=== PATIENT | female | born 1940 | race Hispanic/Latino ===

== ENCOUNTER 2016-09-29 16:02 | Emergency (ER) | payer MEDICARE, OTHER ==
[2016-09-29 16:07] VITALS: BP 116/75; PULSE 84; RESP 18; TEMP 98.2; O2SAT 97
--- NOTE | 2016-09-29 16:28 | ED PDOC ---
HPI: Trauma/Fall - HPI Time Seen by Provider: 09/29/16 16:09 Chief Complaint (Nursing): Trauma History Per: Patient History/Exam Limitations: no limitations Onset/Duration Of Symptoms: Mins Location Of Injury: Anterior: Head Severity: None Pain Scale Rating Of: 0 Associated Symptoms: denies: Dizziness, Dazed, LOC, Seizure, Memory Impairment Additional History Per: Patient Additional Complaint(s): s/p fall, she was [place] [employer], tripped and hit her head against metal she believes. No LOC, vomiting, AMS, dizziness, weakness, numbness, tingling. Tetanus updated within the past 10 years. Denies any other head trauma. Past Medical History Reviewed: Historical Data, Nursing Documentation, Vital Signs Vital Signs: Last Vital Signs Temp 98.2 F 09/29/16 16:05 Pulse 84 09/29/16 16:05 Resp 18 09/29/16 16:05 BP 116/75 09/29/16 16:05 Pulse Ox 97 09/29/16 16:05 - Medical History PMH: Arthritis, Osteoporosis Denies: Chronic Kidney Disease - Family History Family History: States: Unknown Family Hx - Immunization History Hx Tetanus Toxoid Vaccination: Yes (<10 years) - Allergies Allergies/Adverse Reactions: Allergies Allergy/AdvReac Type Severity Reaction Status Date / Time acetaminophen [From Vicodin] Allergy REDNESS Verified 11/30/15 19:10 hydrocodone bitartrate Allergy REDNESS Verified 11/30/15 19:10 [From Vicodin] latex Allergy RASH Verified 11/30/15 19:10 Review of Systems ROS Statement: Except As Marked, All Systems Reviewed And Found Negative Skin: Positive for: Other (Laceration) Physical Exam - Reviewed Nursing Documentation Reviewed: Yes Vital Signs Reviewed: Yes - Physical Exam Appears: Positive for: Well, Non-toxic, No Acute Distress Head Exam: Positive for: NORMOCEPHALIC. Negative for: NORMAL INSPECTION (3cm superficial linear laceration) Skin: Positive for: Normal Color, Warm, DRY Eye Exam: Positive for: EOMI, Normal appearance, PERRL ENT: Positive for: Normal ENT Inspection Neck: Positive for: Normal, Painless ROM Cardiovascular/Chest: Positive for: Regular Rate, Rhythm Respiratory: Positive for: Normal Breath Sounds Gastrointestinal/Abdominal: Positive for: Normal Exam, Bowel Sounds, Soft, Tenderness Pelvic Exam: Positive for: External Exam Normal Back: Positive for: Normal Inspection Extremity: Positive for: Normal ROM Neurologic/Psych: Positive for: Alert, chip person II-XII, Oriented. Negative for: Motor/Sensory Deficits, Mood/Affect, Cerebellar Tests, Gait, Aphasia, Facial Droop - ECG O2 Sat by Pulse Oximetry: 97 Pulse Ox Interpretation: Normal Medical Decision Making Medical Decision Making: elderly head trauma- wound glued with dermabond successfully. will do head CT, if neg will d/c. pt. informed of return precautions. 6PM: Head CT neg. Discussed results with patient. Re-instructed on return precuations. Disposition - Clinical Impression Clinical Impression: Head injury, Laceration - Disposition Referrals: Carlo Rowley MD [Staff Provider] - Disposition Time: 18:00 Condition: STABLE Instructions: Head Injury (ED), Skin Adhesive Care (ED) Laceration - Laceration Repair No standard instances Wound Length (In cm): 36 in Description Of Wound: Linear Wound Examination: Irrigated With Saline Wound Closure: Skin Glue Wound Complexity: Simple
--- NOTE | 2016-09-29 18:02 | CT ---
PROCEDURE: CT HEAD WITHOUT CONTRAST. HISTORY: Head trauma, r/o bleed COMPARISON: None available. TECHNIQUE: Axial computed tomography images were obtained through the head/brain without intravenous contrast. Radiation dose: Total exam DLP = 1087.07 mGy-cm. This CT exam was performed using one or more of the following dose reduction techniques: Automated exposure control, adjustment of the mA and/or kV according to patient size, and/or use of iterative reconstruction technique. FINDINGS: HEMORRHAGE: No intracranial hemorrhage. BRAIN: There are mild chronic microangiopathic changes. There is no mass, mass effect or abnormal extra-axial fluid collection. VENTRICLES: There is mild age-related global parenchymal volume loss and proportionate enlargement of the ventricles and cortical sulci. CALVARIUM: There is no calvarial fracture. There is a small left frontal scalp hematoma. PARANASAL SINUSES: Predominantly clear. MASTOID AIR CELLS: Predominantly clear. OTHER FINDINGS: None. IMPRESSION: No acute intracranial abnormality.
== END 2016-09-29 18:14 | disposition home or self-care (01) ==
LOC: H.ER 16:02
DX: S09.90XA Unspecified injury of head, initial encounter (principal); S01.01XA Laceration without foreign body of scalp, initial encounter; W19.XXXA Unspecified fall, initial encounter; Y92.89 Other specified places as the place of occurrence of the external cause